=== PATIENT | male | born 1965 | race Two or more races ===

== ENCOUNTER 2025-06-27 21:39 | Inpatient (IN) | payer SELFPAY ==
[~2025-06-27] VITALS: Ht 170.2 cm; Wt 73.4 kg
[2025-06-27 22:47] LABS: Hematocrit 40.4 % (41.0-53.0); Hemoglobin 14.2 g/dL (13.5-17.5); Mean Corpuscular Hemoglobin 30.2 pg (28.0-32.0); Mean Corpuscular Volume 86.0 fL (80.0-100.0); Nucleated Red Blood Cells % 0.0 %
--- NOTE | 2025-06-27 22:53 | DVH ---
Exam: CT CT AB PEL WO CON-NO ORAL OR IV History: Left-sided flank pain Comparison Study: None TECHNIQUE: Multidetector CT of the abdomen and pelvis was performed from lung bases to pubic symphysi s. Imaging was performed without IV contrast. Axial, coronal, and sagittal multiplanar reformats were obtained from the axial data set by the technologist. RADIATION DOSE: CTDI vol 7.71 mGy. DLP 468.02 mGy.cm Findings: Limited evaluation of the solid organs in the absence of IV contrast. Evaluation is also degraded by motion artifact. Lungs: There is atelectasis/scarring. Liver: Unremarkable. Spleen: Unremarkable. Pancreas: Unremarkable. Gallbladder: Cholelithiasis. Adrenals: Unremarkable Kidneys: Punctate calculus situated within the distal left ureter near the ureterovesicular junction with mild upstream left hydroureteronephrosis. Pelvic Viscera: Unremarkable. Vasculature: Unremarkable. Retroperitoneum: Unremarkable. Bowel: No bowel obstruction. The appendix is normal. Musculoskeletal: Chronic appearing mild compression of L1 with associated Schmorl's node. Soft tissues: Bilateral fat containing inguinal hernias. Impression: 1. Punctate calculus situated within the distal left ureter near the ureterovesicular junction with m ild upstream left hydroureteronephrosis. 2. Additional findings as detailed.
[2025-06-27 22:54] LABS: Chloride 105 mmol/L (98-107); Sodium 142 mmol/L (136-145)
[2025-06-27 22:55] LABS: Anion Gap 11 (5-15); Calcium 9.3 mg/dL (8.7-10.4); Carbon Dioxide 26 mmol/L (20-31)
[2025-06-27 22:56] LABS: Potassium 3.2 mmol/L (3.5-5.1)
[2025-06-27 23:00] LABS: BUN/Creatinine Ratio 16.0 (10.0-20.0); Blood Urea Nitrogen 16 mg/dL (9-23); Lipase 32 U/L (12-53)
[2025-06-27 23:04] LABS: Glucose 127 mg/dL (74-106)
--- NOTE | 2025-06-27 23:11 | ED.PDOC ---
General HPI Comments This patient is a otherwise healthy 60-year-old male who was brought to the ED with his son for evaluation of left-sided flank pain that began approximately 2 hours prior to arrival. Patient states the symptoms came on quickly and has been unrelenting. Patient states the pain is significant. Patient denies any fever but states intermittent nausea. Vital signs were stable. Chief Complaint: Flank Pain Time Seen by MD: 21:49 Reviewed notes: Nurses Notes Allergies: Coded Allergies: NO KNOWN ALLERGIES (Unverified , 06/27/25) Information Source: Patient, Relative (Child) Mode of Arrival: Ambulatory Severity: Moderate Timing: Hours Duration: Since onset Prehospital treatment: None Onset: Spontaneous Symptoms: Other (Flank pain) Location: (L)Flank Penile discharge: Yellow Modifying factors: None associated signs and symptoms: Nausea Past Medical History PAST MEDICAL HISTORY: Denies Surgical History: Denies all surgeries Family History Family History: Reviewed,noncontributory to illness, No family hx of Cancer, No family hx of DM, No family hx of Heart nilo, No family hx of HTN, No family hx ofKidney nilo, No family hx of Liver nilo, No family hx of Lung nilo, No family hx of Stroke Social History Smoker: Non-Smoker Alcohol: Denies ETOH Use Drugs: Denies Drug Use Lives In: Home Constitutional: denies: chills, diaphoresis, fatigue, fever, malaise, sweats, weakness, others EENTM: denies: blurred vision, double vision, ear bleeding, ear discharge, ear drainage, ear pain, ear ringing, eye pain, eye redness, hearing loss, mouth pain, mouth swelling, nasal discharge, nose bleeding, nose congestion, nose pain, photophobia, tearing, throat pain, throat swelling, voice changes, others Respiratory: denies: cough, hemoptysis, orthopnea, SOB at rest, shortness of breath, SOB with excertion, stridor, wheezing, others Cardiovascular: denies: chest pain, dizzy spells, diaphoresis, Dyspnea on exertion, edema, irregular heart beat, left arm pain, lightheadedness, palpitations, PND, syncope, others Gastrointestinal: reports: abdominal pain, nausea; denies: abdomen distended, blood streaked bowels, constipated, diarrhea, dysphagia, difficulty swallowing, hematemesis, melena, poor appetite, poor fluid intake, rectal bleeding, rectal pain, vomiting, others Genitourinary: reports: flank pain; denies: burning, dysuria, frequency, hematuria, incontinence, penile discharge, penile sore, pain, testicle pain, t esticle swelling, urgency, others Neurological: denies: dizziness, fainting, headache, left sided numbness, left sided weakness, numbness, paresthesia, pre-existing deficit, right sided numbness, right sided weakness, seizure, speech problems, tingling, tremors, weakness, others Musculoskeletal: denies: back pain, gout, joint pain, joint swelling, muscle pain, muscle stiffness, neck pain, others Integumetry: denies: bruises, change in color, change in hair/nails, dryness, laceration, lesions, lumps, rash, wounds, others Allergic/Immunocompromised: denies: Difficulty Healing, Frequent Infections, Hives, Itching, others Hematologic/Lymphatic: denies: anemia, blood clots, easy bleeding, easy bruising, swollen glands, others Endocrine: denies: excessive hunger, excessive sweating, excessive thirst, excessive urination, flushing, intolerance to cold, intolerance to heat, unexplained weight gain, unexplained weight loss, others Psychiatric: denies: anxiety, bipolar disorder, depression, hopeless, panic disorder, schizophrenia, sleepless, suicidal, others Physical Exam General Appearance: Moderate Distress (Moderate distress due to left-sided flank pain concerns.), Normal HEENT: Normal ENT Inspection, Pharynx Normal, TMs Normal Neck: Full Range of Motion, Non-Tender, Normal, Normal Inspection Respiratory: Chest Non-Tender, Lungs Clear, No Accessory Muscle Use, No Respiratory Distress, Normal Breath Sounds Cardiovascular: No Edema, No JVD, No Murmur, No Gallop, Normal Peripheral Pulses, Regular Rate/Rhythm Breast Exam: Deferred Gastrointestinal: Other (Patient displays diffuse left flank tenderness to palpation with a definitive CVA pain. No pulsatile masses. No signs of trauma.) Genitalia: Deferred Pelvic: Deferred Rectal: Deferred Extremities: No calf tenderness, Normal inspection, Non-tender Neurologic: Alert Cerebellar Function: NOT DONE Reflexes: NOT DONE Skin: Dry, Normal Color, Warm Lymphatic: No Adenopathy Was a procedure done? Was a procedure done?: No Differential Diagnosis Kidney stone (Female): Other (Kidney stone, pyelonephritis, UTI, sepsis, electrolyte abnormality) X-Ray, Labs, Meds, VS Vital Signs Date Time Temp Pulse Resp B/P (MAP) Pulse Ox O2 Delivery O2 Flow Rate FiO2 06/27/25 21:46 97.5 60 22 146/84 99 97.5 Lab Test 06/27/25 22:35 Range/Units White Blood Count 7.3 4.4-10.8 10^3/uL Red Blood Count 4.70 4.5-5.90 10^6/uL Hemoglobin 14.2 13.5-17.5 g/dL Hematocrit 40.4 L 41.0-53.0 % Mean Corpuscular Volume 86.0 80.0-100.0 fL Mean Corpuscular Hemoglobin 30.2 28.0-32.0 pg Mean Corpuscular Hemoglobin Concent 35.2 32.0-36.0 g/dL Red Cell Distribution Width 13.0 11.8-14.3 % Platelet Count 371 140-450 10^3/uL Mean Platelet Volume 6.4 L 6.9-10.8 fL Neutrophils (%) (Auto) 45.5 37.0-80.0 % Lymphocytes (%) (Auto) 44.6 10.0-50.0 % Monocytes (%) (Auto) 7.6 0.0-12.0 % Eosinophils (%) (Auto) 1.4 0.0-7.0 % Basophils (%) (Auto) 0.9 0.0-2.0 % Neutrophils # (Auto) 3.3 1.6-8.6 10 ^3/uL Lymphocytes # (Auto) 3.2 0.4-5.4 10 ^3/uL Monocytes # (Auto) 0.6 0-1.3 10 ^3/uL Eosinophils # (Auto) 0.1 0-0.8 10 ^3/uL Basophils # (Auto) 0.1 0-0.2 10 ^3/uL Nucleated Red Blood Cells 0.0 % Sodium Level 142 136-145 mmol/L Potassium Level 3.2 L 3.5-5.1 mmol/L Chloride Level 105 98-107 mmol/L Carbon Dioxide Level 26 20-31 mmol/L Anion Gap 11 5-15 Blood Urea Nitrogen 16 9-23 mg/dL Creatinine 1.00 0.700-1.30 mg/dL Glomerular Filtration Rate Calc 87 >90 mL/min BUN/Creatinine Ratio 16.0 10.0-20.0 Serum Glucose 127 H 74-106 mg/dL Calcium Level 9.3 8.7-10.4 mg/dL Lipase 32 12-53 U/L X-Ray, Labs, Meds, VS Comment Follow up interval studies were reviewed by me personally. Urine was pending at time of this note. Serum studies were unremarkable for any significant systemic concerns. CT studies confirmed an occlusive kidney stone as well as some developing hydronephrosis. Patient will be admitted for pain management as well as possible nephrology evaluation. Time of 1ST Reevaluation: 23:10 Reevaluation 1ST: Improved Consultation: PCP Patient Education/Counseling: Diagnosis, Treatment Family Education/Counseling: Diagnosis, Treatment SEPSIS Sepsis Screen Date sepsis recognized/suspect: Jun 27, 2025 Time Sepsis recognized/suspect: 2148 Recent Procedure: No On Antibiotic Therapy: No Respiratory Rate >20: No Heart Rate >90: No Temp<36 C (96.8 F) or >38.3 C: No SBP <90 or MAP <65 mmHG: No New Acute Mental Status Change: No Is the patient on CPAP, BIPAP,: No Physician Orders Urinalysis (06/27/25 22:11) Ct Ab Pel Wo Con-No Oral Or Iv (06/27/25 22:11) Potassium Effervesent Tab (Klor-Con/Ef) (06/27/25 23:15) Vital Signs Date Time Temp Pulse Resp B/P (MAP) Pulse Ox O2 Delivery O2 Flow Rate FiO2 06/27/25 21:46 97.5 60 22 146/84 99 97.5 Laboratory Tests Test 06/27/25 22:35 White Blood Count 7.3 10^3/uL (4.4-10.8) Departure 1 Departure Time of Disposition: 23:10 Impression: Primary Impression: Kidney stone on left side Additional Impression: Hydronephrosis concurrent with and due to calculi of kidney and ureter Disposition: ADMITTED INPATIENT Condition: Stable Discharged With: Self, Relative Critical Care Note Critical Care Time?: No Stability Stability form required: No Heart Score Heart Score: Heart Score Response (Comments) Value History N/A 0 EKG N/A 0 Age N/A 0 Risk Factors N/A 0 Troponin N/A 0 Total 0 MERON TRUJILLO PAC Jun 27, 2025 23:11
[2025-06-28] VITALS (8 sets, daily range): BP systolic 99–138; BP diastolic 67–86; PULSE 54–64; RESP 15–20; TEMP 97.6–98.5; O2SAT 97–100
[2025-06-28] MEDS: POTASSIUM EFFERVESENT TAB 25 MEQ PO ONE (00:18)
[2025-06-28] MEDS: HYDROcodone-ACET 10/325MG TAB PO ONE (00:20)
[2025-06-28] MEDS: KETOROLAC TROMETH 60MG/2ML VIAL IM ONE (00:20)
[2025-06-28 01:19] LABS: Urine Protein, UAD Negative (Negative)
[2025-06-28] MEDS ORDERED: MORPHINE SULFATE INJ 2 MG/ml SYRG IV PRN ×2 (03:00)
[2025-06-28] MEDS ORDERED: DOCUSATE SOD 100 MG CAP PO PRN (03:00)
[2025-06-28] MEDS ORDERED: NITROGLYCERIN 0.4 MG SL TAB SL PRN (03:00)
[2025-06-28] MEDS ORDERED: ACETAMINOPHEN 325 MG TAB PO PRN (03:00)
[2025-06-28] MEDS ORDERED: HYDROcodone-ACET 5/325MG TAB PO PRN (03:00)
[2025-06-28] MEDS ORDERED: ONDANSETRON HCL 4 MG/2 ML VIAL IV PRN (03:00)
--- NOTE | 2025-06-28 03:04 | DVHHP2 ---
History of Present Illness Reason for Visit: Hydroureteronephrosis History of Present Illness The patient is a 60-year-old male who denies past medical history presented to [facility] ED with complaint of left flank pain. Patient reports he has been experiencing left-sided flank pain, radiating to lower back, rating 7/10 numeric scale, getting worse that prompted this visit. Patient was seen and evaluated in the ED, laboratory data shows WBC 7.3, platelets 371, sodium 142, potassium 3.2, BUN 16, creatinine 1.00, GFR 87, glucose 127, calcium 9.3, lipase 32, blood pressure 115/79, heart rate 63, temperature 97.3 F, O2 saturation 97% on room air. Abdomen/pelvis CT revealing punctate calculus situated within the distal left ureter near the uretero-vesicular junction with mild upstream left hydroureteronephrosis. Please see medication orders section in the computer. On my assessment, patient denied chest pain, no headache, dizziness, diaphoresis, shortness of breaths, no abdominal pain, nausea, vomiting, fever, no chills. Patient was admitted for further evaluation and medical management. Past Medical History Denies past medical history Past Surgical History Denies all surgeries Family History Reviewed, noncontributory to the management of this case. Past Social History The patient lives at home, denies smoking, alcohol or illicit drugs abuse. Review of Systems Constitutional: No: Fever, Chills, Sweats, Weakness, Malaise, Other Eyes: No: Pain, Vision change, Conjunctivae inflammation, Eyelid inflammation, Other, Redness ENT: No: Ear pain, Ear discharge, Nose pain, Nose discharge, Nose congestion, Mouth pain, Mouth swelling, Throat pain, Throat swelling, Other Respiratory: No: Cough, Dry, Shortness of breath, SOB with excertion, Wheezing, Hemoptysis, Pleuritic Pain, Sputum, Wheezing, Other Cardiovascular: No: Chest Pain, Palpitations, Orthopnea, Paroxysmal Noc. Dyspnea, Edema, Lt Headedness, Other Gastrointestinal: No: Nausea, Vomiting, Abdominal Pain, Diarrhea, Constipation, Melena, Hematochezia, Other Genitourinary: No Dysuria, No Frequency, No Incontinence, No Hematuria, No Ret ention; Other (Left flank pain) Musculoskeletal: back pain; No: other, neck pain, shoulder pain, arm pain, hand pain, leg pain, foot pain Skin: No: Rash, Lesions, Jaundice, Bruising, Other Neurological: No: Weakness, Numbness, Incoordination, Change in speech, Confusion, Seizures, Other Allergies: Coded Allergies: NO KNOWN ALLERGIES (Unverified , 06/27/25) Exam Vital Signs Vital Signs Date Time Temp Pulse Resp B/P (MAP) Pulse Ox O2 Delivery O2 Flow Rate FiO2 06/28/25 01:04 97.3 63 12 115/79 (91) 97 97.3 General Appearance: Alert, Oriented X3, Cooperative, No acute distress HEENT: Atraumatic, PERRLA, EOMI, Mucous membr. moist/pink Respiratory: Normal air movement Cardiovascular: Regular rate, Normal S1, Normal S2, No murmurs Abdominal: Normal bowel sounds, Soft, No tenderness, No hepatospenomegaly, No masses Extremities: No clubbing, No cyanosis, No edema, Normal pulses, No tenderness/swelling Skin: No rashes, No significant lesion Neuro: Normal speech, Normal tone, Sensation intact, Cranial nerves 3-12 NL, Reflexes 2+, Other (Generalized weakness) Psych/Mental Status: Mental status NL, Mood NL Labs/Xrays Labs Test 06/28/25 00:51 06/27/25 22:35 Range/Units Urine Color Yellow Yellow Urine Clarity Clear Clear Urine pH 5.0 5.0-9.0 Urine Specific [place] 1.026 1.001-1.035 Urine Protein Negative Negative Urine Ketones 1+ H Negative Urine Blood 3+ H Negative /uL Urine Nitrite Negative Negative Urine Bilirubin Negative Negative Urine Urobilinogen Normal Negative mg/dL Urine Leukocyte Esterase Negative Negative /uL Urine RBC 48 0 - 3 /hpf Urine Microscopic WBC 3 0-3 /HPF Urine Squamous Epithelial Cells Few <5 /hpf Urine Bacteria None seen None Seen /hpf Urine Mucus Few None Seen Urine Glucose Normal Normal mg/dL White Blood Count 7.3 4.4-10.8 10^3/uL Red Blood Count 4.70 4.5-5.90 10^6/uL Hemoglobin 14.2 13.5-17.5 g/dL Hematocrit 40.4 L 41.0-53.0 % Mean Corpuscular Volume 86.0 80.0-100.0 fL Mean Corpuscular Hemoglobin 30.2 28.0-32.0 pg Mean Corpuscular Hemoglobin Concent 35.2 32.0-36.0 g/dL Red Cell Distribution Width 13.0 11.8-14.3 % Platelet Count 371 140-450 10^3/uL Mean Platelet Volume 6.4 L 6.9-10.8 fL Neutrophils (%) (Auto) 45.5 37.0-80.0 % Lymphocytes (%) (Auto) 44.6 10.0-50.0 % Monocytes (%) (Auto) 7.6 0.0-12.0 % Eosinophils (%) (Auto) 1.4 0.0-7.0 % Basophils (%) (Auto) 0.9 0.0-2.0 % Neutrophils # (Auto) 3.3 1.6-8.6 10 ^3/uL Lymphocytes # (Auto) 3.2 0.4-5.4 10 ^3/uL Monocytes # (Auto) 0.6 0-1.3 10 ^3/uL Eosinophils # (Auto) 0.1 0-0.8 10 ^3/uL Basophils # (Auto) 0.1 0-0.2 10 ^3/uL Nucleated Red Blood Cells 0.0 % Sodium Level 142 136-145 mmol/L Potassium Level 3.2 L 3.5-5.1 mmol/L Chloride Level 105 98-107 mmol/L Carbon Dioxide Level 26 20-31 mmol/L Anion Gap 11 5-15 Blood Urea Nitrogen 16 9-23 mg/dL Creatinine 1.00 0.700-1.30 mg/dL Glomerular Filtration Rate Calc 87 >90 mL/min BUN/Creatinine Ratio 16.0 10.0-20.0 Serum Glucose 127 H 74-106 mg/dL Calcium Level 9.3 8.7-10.4 mg/dL Lipase 32 12-53 U/L PATIENT: ROSALINDA SALDANA ACCT: [id number] UNIT: [id number] : 1965 LOC: ER ROOM / BED: / AGE / SEX: 60 / M ADM STATUS: REG ER SERVICE 10 ORDERING PHYSICIAN: MERON TRUJILLO PAC PROCEDURE(s): ABPL - CT AB PEL WO CON-NO ORAL OR IV REASON: Left-sided flank pain ORDER NUMBER(s): [id number], ACCESSION NUMBER(s): [id number] Exam: CT CT AB PEL WO CON-NO ORAL OR IV History: Left-sided flank pain Comparison Study: None TECHNIQUE: Multidetector CT of the abdomen and pelvis was performed from lung bases to pubic symphysis. Imaging was performed without IV contrast. Axial, coronal, and sagittal multiplanar reformats were obtained from the axial data set by the technologist. RADIATION DOSE: CTDI vol 7.71 mGy. DLP 468.02 mGy.cm Findings: Limited evaluation of the solid organs in the absence of IV contrast. Evaluation is also degraded by motion artifact. Lungs: There is atelectasis/scarring. Liver: Unremarkable. Spleen: Unremarkable. Pancreas: Unremarkable. Gallbladder: Cholelithiasis. Adrenals: Unremarkable Kidneys: Punctate calculus situated within the distal left ureter near the uretero-vesicular junction with mild upstream left hydroureteronephrosis. Pelvic Viscera: Unremarkable. Vasculature: Unremarkable. Retroperitoneum: Unremarkable. Bowel: No bowel obstruction. The appendix is normal. Musculoskeletal: Chronic appearing mild compression of L1 with associated Schmorl's node. Soft tissues: Bilateral fat containing inguinal hernias. Impression: 1. Punctate calculus situated within the distal left ureter near the uretero- vesicular junction with mild upstream left hydroureteronephrosis. 2. Additional findings as detailed. SEPSIS Sepsis Screen Date sepsis recognized/suspect: Jun 27, 2025 Time Sepsis recognized/suspect: 2148 Recent Procedure: No On Antibiotic Therapy: No Respiratory Rate >20: No Heart Rate >90: No Temp<36 C (96.8 F) or >38.3 C: No SBP <90 or MAP <65 mmHG: No New Acute Mental Status Change: No Is the patient on CPAP, BIPAP,: No Physician Orders Ct Ab Pel Wo Con-No Oral Or Iv (06/27/25 22:11) Complete Blood Count (06/28/25 04:00) Comprehensive Metabolic Panel (06/28/25 04:00) Admit (06/28/25 02:59) Allergies (06/28/25 02:59) Code Status (06/28/25 02:59) Sodium Chloride Lock (Saline Lock Ns) (06/28/25 06:00) Oxygen Per Hour (06/28/25 02:59) Hydrocodone-Acet 5/325mg Tab ([place] 5/32 (06/28/25 03:00) Ondansetron Hcl (Zofran) (06/28/25 03:00) Docusate Sodium Capsule (Colace Capsule) (06/28/25 03:00) Complete Blood Count (06/29/25 04:00) Comprehensive Metabolic Panel (06/29/25 04:00) Cardiac Diet-2gna,Lofat,Lochol (06/28/25 Breakfast) Condition: Serious (06/28/25 02:59) Acetaminophen Tablet (Tylenol Tablet) (06/28/25 03:00) Bedrest With Bathroom Privileg (06/28/25 02:59) Maintain Bed Rest (06/28/25 02:59) Morphine Sulfate Injection (06/28/25 03:00) Sequential Compression Device (06/28/25 ) Nitroglycerin Sublingual (Ntrostat Subli (06/28/25 03:00) Vital Signs Date Time Temp Pulse Resp B/P (MAP) Pulse Ox O2 Delivery O2 Flow Rate FiO2 06/28/25 01:04 97.3 63 12 115/79 (91) 97 97.3 06/27/25 21:46 97.5 60 22 146/84 99 97.5 Laboratory Tests Test 06/27/25 22:35 White Blood Count 7.3 10^3/uL (4.4-10.8) Medications Medications Dose Ordered Sig/Emmanuel Route Start Time Stop Time Status Last Admin Dose Admin Acetaminophen/ Hydrocodone Bitart 1 tab ONCE ONCE PO 06/27/25 22:15 06/27/25 22:16 DC 06/28/25 00:20 1 TAB Ketorolac Tromethamine 30 mg ONCE ONCE IM 06/27/25 22:15 06/27/25 22:16 DC 06/28/25 00:20 30 MG Potassium Bicarbonate 25 meq ONCE ONCE PO 06/27/25 23:15 06/27/25 23:16 DC 06/28/25 00:18 25 MEQ Assessment/Plan Assessment/Plan Kidney stone on left side Hydronephrosis concurrent with and due to calculi of kidney and ureter Plan 1. Admit to med surge unit 2. Breathing treatment 3. Pain control management 4. Management of fluids and electrolytes 5. Consultation for Urology 6. Diagnostic tests abdomen/pelvis CT 7. DVT prophylaxis on SCDs 8. Repeat labs CBC, CMP in a.m. 9. Continue with current medical management 10. Treatment plan discussed with patient and RN. Patient verbalized angel lorenz. Plan discussed with: Patient, Other (RN) My Orders Orders - QUENTIN SMITH DNP Procedure Category Date Status Time Complete Blood Count LAB 06/28/25 Verified 04:00 Comprehensive LAB 06/28/25 Verified Metabolic Panel 04:00 Admit ADMIT 06/28/25 Verified 02:59 Allergies VITO 06/28/25 Verified 02:59 Code Status CODE 06/28/25 Verified 02:59 Sodium Chloride Lock PHA 06/28/25 Verified (Saline Lock Ns) 06:00 Oxygen Per Hour RT 06/28/25 Verified 02:59 Hydrocodone-Acet PHA 06/28/25 Verified 5/325mg Tab ([place] 03:00 Ondansetron Hcl PHA 06/28/25 Verified (Zofran) 03:00 Docusate Sodium PHA 06/28/25 Verified Capsule (Colace 03:00 Complete Blood Count LAB 06/29/25 Verified 04:00 Comprehensive LAB 06/29/25 Verified Metabolic Panel 04:00 Cardiac DIET 06/28/25 Verified Diet-2gna,Lofat,Lochol Breakfast Condition: Serious VITO 06/28/25 Verified 02:59 Acetaminophen Tablet PHA 06/28/25 Verified (Tylenol Tablet) 03:00 Bedrest With Bathroom VITO 06/28/25 Verified Privileg 02:59 Maintain Bed Rest VITO 06/28/25 Verified 02:59 Morphine Sulfate PHA 06/28/25 Verified Injection 03:00 Sequential VITO 06/28/25 Verified Compression Device Nitroglycerin PHA 06/28/25 Verified Sublingual (Ntrostat 03:00 Problem List: (1) Kidney stone on left side (2) Hydronephrosis concurrent with and due to calculi of kidney and ureter Date of Service: Jun 28, 2025 Billing Provider: QUENTIN SMITH DNP Common Visit Codes: [id number] INP/OBS CARE (HIGH) QUENTIN SMITH DNP Jun 28, 2025 03:04
[2025-06-28] MEDS: SODIUM CHLOR 0.9% PF (SALINE LOCK) 10ML VIAL/SYR IV SCH (05:47)
[2025-06-28 07:45] LABS: Hematocrit 40.0 % (41.0-53.0); Hemoglobin 14.1 g/dL (13.5-17.5); Mean Corpuscular Hemoglobin 30.4 pg (28.0-32.0); Mean Corpuscular Volume 86.3 fL (80.0-100.0); Nucleated Red Blood Cells % 0.0 %
[2025-06-28 07:56] LABS: Alanine Aminotransferase 34 U/L (7-40); Anion Gap 10 (5-15); BUN/Creatinine Ratio 17.1 (10.0-20.0); Blood Urea Nitrogen 13 mg/dL (9-23); Calcium 9.1 mg/dL (8.7-10.4); Carbon Dioxide 26 mmol/L (20-31); Glucose 92 mg/dL (74-106); Potassium 4.4 mmol/L (3.5-5.1); Sodium 143 mmol/L (136-145); Total Protein 7.0 g/dL (5.7-8.2)
[2025-06-28 07:57] LABS: Albumin 4.5 g/dL (3.2-4.8)
[2025-06-28 07:58] LABS: Bilirubin, Total 0.8 mg/dL (0.2-1.0); Chloride 107 mmol/L (98-107)
[2025-06-28 08:11] LABS: Alkaline Phosphatase 64 U/L (46-116)
--- NOTE | 2025-06-28 09:44 | DVHINCON2 ---
Date of service: Jun 28, 2025 Reason for Consultation ureteral stone History of Present Illness History Source: Patient, RN Notes, MD Notes Exam Limitations: No limitations HPI 60-year-old male who was brought to the ED with his son for evaluation of left- sided flank pain that began approximately 2 hours prior to arrival. Patient states the symptoms came on quickly and has been unrelenting. Patient states the pain is significant. Patient denies any fever but states intermittent nausea. Home Meds No Active Prescriptions or Reported Meds Review of Systems Gastrointestinal: Abdominal Pain H&P Exam Vital Signs Vital Signs Date Time Temp Pulse Resp B/P (MAP) Pulse Ox O2 Delivery O2 Flow Rate FiO2 06/28/25 09:00 97.6 62 18 99/67 (78) 97 97.6 06/28/25 05:24 Room Air* 0 21 Labs/Xrays [place] [id number] Ph: [phone] DIAGNOSTIC IMAGING Diagnostic Imaging Report : [id number] Signed PATIENT: ROSALINDA SALDANA ACCT: [id number] UNIT: [id number] : 1965 LOC: ER ROOM / BED: / AGE / SEX: 60 / M ADM STATUS: REG ER SERVICE 10 ORDERING PHYSICIAN: MERON TRUJILLO PAC PROCEDURE(s): ABPL - CT AB PEL WO CON-NO ORAL OR IV REASON: Left-sided flank pain ORDER NUMBER(s): [id number], ACCESSION NUMBER(s): [id number] Exam: CT CT AB PEL WO CON-NO ORAL OR IV History: Left-sided flank pain Comparison Study: None TECHNIQUE: Multidetector CT of the abdomen and pelvis was performed from lung bases to pubic symphysis. Imaging was performed without IV contrast. Axial, coronal, and sagittal multiplanar reformats were obtained from the axial data set by the technologist. RADIATION DOSE: CTDI vol 7.71 mGy. DLP 468.02 mGy.cm Findings: Limited evaluation of the solid organs in the absence of IV contrast. Evaluation is also degraded by motion artifact. Lungs: There is atelectasis/scarring. Liver: Unremarkable. Spleen: Unremarkable. Pancreas: Unremarkable. Gallbladder: Cholelithiasis. Adrenals: Unremarkable Kidneys: Punctate calculus situated within the distal left ureter near the ureterovesicular junction with mild upstream left hydroureteronephrosis. Pelvic Viscera: Unremarkable. Vasculature: Unremarkable. Retroperitoneum: Unremarkable. Bowel: No bowel obstruction. The appendix is normal. Musculoskeletal: Chronic appearing mild compression of L1 with associated Schmorl's node. Soft tissues: Bilateral fat containing inguinal hernias. Impression: 1. Punctate calculus situated within the distal left ureter near the ureterovesicular junction with mild upstream left hydroureteronephrosis. 2. Additional findings as detailed. ATED BY: GRETA BELLA MD DICTATED DATE/TIME: 06/27/252249 SIGNED BY: GRETA BELLA MD SIGNED DATE/TIME: 06/27/252249 CC: Labs Test 06/28/25 07:20 06/28/25 00:51 06/27/25 22:35 Range/Units White Blood Count 5.1 # 4.4-10.8 10^3/uL Red Blood Count 4.63 4.5-5.90 10^6/uL Hemoglobin 14.1 13.5-17.5 g/dL Hematocrit 40.0 L 41.0-53.0 % Mean Corpuscular Volume 86.3 80.0-100.0 fL Mean Corpuscular Hemoglobin 30.4 28.0-32.0 pg Mean Corpuscular Hemoglobin Concent 35.2 32.0-36.0 g/dL Red Cell Distribution Width 13.3 11.8-14.3 % Platelet Count 333 140-450 10^3/uL Mean Platelet Volume 6.6 L 6.9-10.8 fL Neutrophils (%) (Auto) 59.4 37.0-80.0 % Lymphocytes (%) (Auto) 29.2 10.0-50.0 % Monocytes (%) (Auto) 9.3 0.0-12.0 % Eosinophils (%) (Auto) 1.0 0.0-7.0 % Basophils (%) (Auto) 1.1 0.0-2.0 % Neutrophils # (Auto) 3.0 1.6-8.6 10 ^3/uL Lymphocytes # (Auto) 1.5 0.4-5.4 10 ^3/uL Monocytes # (Auto) 0.5 0-1.3 10 ^3/uL Eosinophils # (Auto) 0 0-0.8 10 ^3/uL Basophils # (Auto) 0.1 0-0.2 10 ^3/uL Nucleated Red Blood Cells 0.0 % Sodium Level 143 136-145 mmol/L Potassium Level 4.4 3.5-5.1 mmol/L Chloride Level 107 98-107 mmol/L Carbon Dioxide Level 26 20-31 mmol/L Anion Gap 10 5-15 Blood Urea Nitrogen 13 9-23 mg/dL Creatinine 0.76 0.700-1.30 mg/dL Glomerular Filtration Rate Calc 104 >90 mL/min BUN/Creatinine Ratio 17.1 10.0-20.0 Serum Glucose 92 74-106 mg/dL Calcium Level 9.1 8.7-10.4 mg/dL Total Bilirubin 0.8 0.2-1.0 mg/dL Aspartate Amino Transferase (AST) 28 13-40 U/L Alanine Aminotransferase (ALT) 34 7-40 U/L Alkaline Phosphatase 64 46-116 U/L Total Protein 7.0 5.7-8.2 g/dL Albumin 4.5 3.2-4.8 g/dL Urine Color Yellow Yellow Urine Clarity Clear Clear Urine pH 5.0 5.0-9.0 Urine Specific [place] 1.026 1.001-1.035 Urine Protein Negative Negative Urine Ketones 1+ H Negative Urine Blood 3+ H Negative /uL Urine Nitrite Negative Negative Urine Bilirubin Negative Negative Urine Urobilinogen Normal Negative mg/dL Urine Leukocyte Esterase Negative Negative /uL Urine RBC 48 0 - 3 /hpf Urine Microscopic WBC 3 0-3 /HPF Urine Squamous Epithelial Cells Few <5 /hpf Urine Bacteria None seen None Seen /hpf Urine Mucus Few None Seen Urine Glucose Normal Normal mg/dL Lipase 32 12-53 U/L Assessment/Plan Problem List: (1) Kidney stone on left side (2) Hydronephrosis concurrent with and due to calculi of kidney and ureter Plan expulsive measures cleared from urology standpoint Plan discussed with: Patient, Other LUIS MANUEL CHOPRA NP Jun 28, 2025 09:44
[2025-06-29] VITALS (7 sets, daily range): BP systolic 110–126; BP diastolic 73–86; PULSE 54–66; RESP 15–18; TEMP 97.5–98.8; O2SAT 94–97
[2025-06-29 07:22] LABS: Hematocrit 42.7 % (41.0-53.0); Hemoglobin 14.9 g/dL (13.5-17.5); Mean Corpuscular Hemoglobin 30.6 pg (28.0-32.0); Mean Corpuscular Volume 87.4 fL (80.0-100.0); Nucleated Red Blood Cells % 0.2 %
[2025-06-29 07:46] LABS: Alanine Aminotransferase 31 U/L (7-40); Albumin 4.2 g/dL (3.2-4.8); Alkaline Phosphatase 60 U/L (46-116); Anion Gap 11 (5-15); BUN/Creatinine Ratio 9.1 (10.0-20.0); Calcium 9.0 mg/dL (8.7-10.4); Carbon Dioxide 27 mmol/L (20-31); Chloride 107 mmol/L (98-107); Glucose 77 mg/dL (74-106); Potassium 3.8 mmol/L (3.5-5.1); Sodium 145 mmol/L (136-145); Total Protein 6.6 g/dL (5.7-8.2)
[2025-06-29 07:47] LABS: Bilirubin, Total 1.1 mg/dL (0.2-1.0)
[2025-06-29 07:48] LABS: Blood Urea Nitrogen 8 mg/dL (9-23)
[2025-06-29] MEDS ORDERED: NALO4SPR2 (17:31)
[2025-06-29] MEDS ORDERED: TAMS-35 PO (17:31)
[2025-06-29] MEDS ORDERED: HYDR-4902 PO (17:31)
--- NOTE | 2025-06-29 17:34 | DVHDS2 ---
Discharge Summary Date of Admission Jun 28, 2025 at 02:59 Date of Discharge: Jun 29, 2025 Labs/Diagnostic Data: Laboratory Results Test 06/29/25 05:00 06/28/25 00:51 06/27/25 22:35 White Blood Count 5.4 10^3/uL (4.4-10.8) Red Blood Count 4.89 10^6/uL (4.5-5.90) Hemoglobin 14.9 g/dL (13.5-17.5) Hematocrit 42.7 % (41.0-53.0) Mean Corpuscular Volume 87.4 fL (80.0-100.0) Mean Corpuscular Hemoglobin 30.6 pg (28.0-32.0) Mean Corpuscular Hemoglobin Concent 35.0 g/dL (32.0-36.0) Red Cell Distribution Width 13.0 % (11.8-14.3) Platelet Count 339 10^3/uL (140-450) Mean Platelet Volume 6.9 fL (6.9-10.8) Neutrophils (%) (Auto) 55.1 % (37.0-80.0) Lymphocytes (%) (Auto) 33.4 % (10.0-50.0) Monocytes (%) (Auto) 8.6 % (0.0-12.0) Eosinophils (%) (Auto) 2.3 % (0.0-7.0) Basophils (%) (Auto) 0.6 % (0.0-2.0) Neutrophils # (Auto) 3.0 10 ^3/uL (1.6-8.6) Lymphocytes # (Auto) 1.8 10 ^3/uL (0.4-5.4) Monocytes # (Auto) 0.5 10 ^3/uL (0-1.3) Eosinophils # (Auto) 0.1 10 ^3/uL (0-0.8) Basophils # (Auto) 0 10 ^3/uL (0-0.2) Nucleated Red Blood Cells 0.2 % Sodium Level 145 mmol/L (136-145) Potassium Level 3.8 mmol/L (3.5-5.1) Chloride Level 107 mmol/L (98-107) Carbon Dioxide Level 27 mmol/L (20-31) Anion Gap 11 (5-15) Blood Urea Nitrogen 8 mg/dL (9-23) Creatinine 0.88 mg/dL (0.700-1.30) Glomerular Filtration Rate Calc 100 mL/min (>90) BUN/Creatinine Ratio 9.1 (10.0-20.0) Serum Glucose 77 mg/dL (74-106) Calcium Level 9.0 mg/dL (8.7-10.4) Total Bilirubin 1.1 mg/dL (0.2-1.0) Aspartate Amino Transferase (AST) 31 U/L (13-40) Alanine Aminotransferase (ALT) 31 U/L (7-40) Alkaline Phosphatase 60 U/L (46-116) Total Protein 6.6 g/dL (5.7-8.2) Albumin 4.2 g/dL (3.2-4.8) Urine Color Yellow (Yellow) Urine Clarity Clear (Clear) Urine pH 5.0 (5.0-9.0) Urine Specific [place] 1.026 (1.001-1.035) Urine Protein Negative (Negative) Urine Ketones 1+ (Negative) Urine Blood 3+ /uL (Negative) Urine Nitrite Negative (Negative) Urine Bilirubin Negative (Negative) Urine Urobilinogen Normal mg/dL (Negative) Urine Leukocyte Esterase Negative /uL (Negative) Urine RBC 48 /hpf (0 - 3) Urine Microscopic WBC 3 /HPF (0-3) Urine Squamous Epithelial Cells Few /hpf (<5) Urine Bacteria None seen /hpf (None Seen) Urine Mucus Few (None Seen) Urine Glucose Normal mg/dL (Normal) Lipase 32 U/L (12-53) Other Laboratory Tests 06/29/25 05:00 Brief Hx & Hospital Course: 60-year-old male who initially presented to the hospital with a left flank pain found to have left ureteric stone with mild hydronephrosis. Patient was managed with the pain management as well as IV hydration urology evaluated the patient and cleared the patient to be discharged with a close follow up as an outpatient with the PCP and had them. Patient is being discharged under stable condition. Condition at Discharge: Stable Final Diagnosis/Problems List 1. Left flank pain secondary to left ureteric stone 2. Left ureteric stone with mild hydronephrosis Discharge Disposition: Home SNF Discharge Will this Physician continue t: No Discharge Instruct/Medications Diet: Cardiac 2g Na,low cholest Activity: See Comment Activity comment: No driving, no signing legal documents, no playing on machinery while on narcotics. Follow Up/Referral: Please follow up with the PCP in one week Follow up with the [facility] in 1-2 weeks. Medications: [place] as prescribed, Flomax as prescribed. New Medications: Hydrocodone-Acetaminophen (Hydrocodone Bitartrate/AC 5-325 mg) 1 Tab Tab 1 TAB PO Q8HP PRN, #10 TAB Naloxone HCl (Narcan) 4 Mg/0.1 Ml Spr 4 MG NA [employer], #2 SPRAY Tamsulosin Hcl (Flomax) 0.4 Mg Cap 1 CAP PO DAILY, #14 CAP 11 Refills Scheduled Naloxone HCl (Narcan), 4 MG NA [employer]ATOR Tamsulosin Hcl (Flomax), 1 CAP PO DAILY Scheduled PRN Hydrocodone-Acetaminophen (Hydrocodone Bitartrate/AC 5-325 mg), 1 TAB PO Q8HP PRN Discharge Statement: "Patient was advised to return to the ER or call 911 if any headaches, dizziness, shortness of breath, chest pain, abdominal pain, bleeding, fevers, or worsening of medical condition. Patient was counseled about treatment plan, medications, possible side effects, patientverbalized understanding. All questions were answered to the best of my ability. This discharge took greater then 30 minutes in planning, reviewing documentation, counseling the patient, and discussing with other team members." ASSESSMENT ASSESSMENT Assessment 1. Left flank pain secondary to left ureteric stone 2. Left ureteric stone with mild hydronephrosis Date of Service: Jun 29, 2025 Billing Provider: OCTAVIANO HORVATH MD Common Visit Codes: 01179-DAI/OBS DISCH DAY >30min OCTAVIANO HORVATH MD Jun 29, 2025 17:34
== END 2025-06-29 18:10 | disposition home or self-care (01) | DRG 694 ==
LOC: ER 21:42 → OVERFLOW 06-28 02:59 → WEST WING 06-28 17:32
PROVIDERS: ADMIT Internal Medicine; ATTEND Internal Medicine
DX: N13.2 Hydronephrosis with renal and ureteral calculous obstruction (principal); Z82.49 Family history of ischemic heart disease and other diseases of the circulatory system; Z83.3 Family history of diabetes mellitus
CPT/HCPCS: 36415; 74176; 80048; 80053; 81001; 83690; 85025; 96372; G0378; J1885